=== PATIENT | male | born 2000 | race Caucasian/White ===

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

== ENCOUNTER → 2019-03-01 | Outpatient (REF) | payer OTHER ==
[2019-03-01 20:29] LABS: BASO % 0.2 % (0.0-1.0); EOS % 0.2 % (0.0-3.0); HEMATOCRIT 40.9 % (42.0-52.0); HEMOGLOBIN 13.8 g/dl (13.5-17.5); LYMPH # 2.7 10^3/uL (1.5-5.0); LYMPH % 40.5 % (24.0-44.0); MEAN CORPUSCULAR HEMOGLOBIN 34.2 pg (27.0-33.0); MEAN CORPUSCULAR HGB CONC 33.7 g/dl (32.0-36.5); MEAN CORPUSCULAR VOLUME 101.5 fl (80.0-96.0); MONO # 0.5 10^3/uL (0.0-0.8); NEUTROPHILS # 3.4 10^3/uL (1.5-8.5); NEUTROPHILS % 50.9 % (36.0-66.0); PLATELET COUNT, AUTOMATED 159 10^3/uL (150-450); RED BLOOD COUNT 4.03 10^6/uL (4.30-6.10); WHITE BLOOD COUNT 6.6 10^3/uL (4.0-10.0)
== END ==
LOC: M LAB REF 19:23
PROVIDERS: ATTEND Nurse Practitioner Family
DX: K92.1 Melena (principal); K64.4 Residual hemorrhoidal skin tags

== ENCOUNTER → 2019-04-04 | Outpatient (REF) | payer OTHER ==
[2019-04-04 17:36] LABS: BASO % 0.2 % (0.0-1.0); EOS % 0.7 % (0.0-3.0); HEMATOCRIT 45.5 % (42.0-52.0); HEMOGLOBIN 14.8 g/dl (13.5-17.5); LYMPH # 2.8 10^3/uL (1.5-5.0); LYMPH % 49.7 % (24.0-44.0); MEAN CORPUSCULAR HEMOGLOBIN 32.8 pg (27.0-33.0); MEAN CORPUSCULAR HGB CONC 32.5 g/dl (32.0-36.5); MEAN CORPUSCULAR VOLUME 100.9 fl (80.0-96.0); MONO # 0.4 10^3/uL (0.0-0.8); MONO % 7.2 % (0.0-5.0); NEUTROPHILS # 2.3 10^3/uL (1.5-8.5); NEUTROPHILS % 41.7 % (36.0-66.0); PLATELET COUNT, AUTOMATED 174 10^3/uL (150-450); RED BLOOD COUNT 4.51 10^6/uL (4.30-6.10); WHITE BLOOD COUNT 5.6 10^3/uL (4.0-10.0)
[2019-04-04 17:57] LABS: FREE T4 0.82 NG/DL (0.78-1.33); THYROID STIMULATING HORMONE 6.03 uIU/ML (0.463-3.98); VALPROIC ACID (DEPAKOTE) 98.1 UG/ML (50.0-100.0)
== END ==
LOC: M LAB REF 16:38
PROVIDERS: ATTEND Family Medicine
DX: F84.0 Autistic disorder (principal); E03.8 Other specified hypothyroidism; K64.4 Residual hemorrhoidal skin tags; K92.1 Melena